=== PATIENT | female | born 1995 | race Caucasian/White ===

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

== ENCOUNTER → 2020-10-20 | Outpatient (CLI) | payer BC ==
--- NOTE | 2020-10-20 16:45 | REP ---
INDICATION: CYST LEFT OVARY. COMPARISON: None. TECHNIQUE: Multiple sequences obtained in the axial, coronal and sagittal planes prior to and following the intravenous administration of 12 cc ProHance. FINDINGS: Uterine length is approximately 9.4 cm. Junctional zone is intact. Endometrial thickness is 9 mm. The ovaries are normal in size, with normal internal follicles bilaterally. The largest follicle is on the left measuring approximately 2.3 cm in diameter. No suspicious ovarian mass is seen. There is no adenopathy in the pelvis. There is mild free fluid in the cul-de-sac. Visualized osseous structures are unremarkable. IMPRESSION: Dominant follicle left ovary 2.3 cm in diameter. No suspicious mass or adenopathy. Mild free fluid. <Electronically signed by John Shine > 10/20/20 [id number]
== END ==
LOC: M PLAIMG 14:42
PROVIDERS: ATTEND Nurse Practitioner
DX: N83.202 Unspecified ovarian cyst, left side (principal)